=== PATIENT | female | born 1990 | race Caucasian/White ===

== ENCOUNTER 2023-06-12 13:56 | Outpatient (REF) | payer BC, SELFPAY ==
--- OUTSIDE RECORDS SUMMARY | 2023-06-12 13:58 | XMS_ITS | Continuity of Care Document ---
Author Name Unknown Organization [facility] Address [address] [place] [address] Care Team Providers Care Apprentice Plumber Name Role Phone Tita Owens Primary Care Physician Encounter [facility] FIN NBR [id number] Date(s): 08/17/22 - 08/17/[address] [address]- Discharge Disposition: Home or Self Care Attending Physician: Silvano Jeffers MD Admitting Physician: Silvano Jeffers MD Referring Physician: Silvano Jeffers MD Allergies, Adverse Reactions, Alerts Substance Reaction Severity Status amoxicillin Wheal Unknown Active prochlorperazine Disoriented Unknown Active sulfa drugs Wheal Unknown Active diphenhydrAMINE shakes Unknown Active Assessment and Plan Future Appointments Immunizations Given and Recorded Vaccine Date Status Refusal Reason influenza virus vaccine, inactivated 1 04/13/22 Gi kirit 1Early/Late Reason: Early/Late Reason: Other : I was busy. Medications nortriptyline 10 mg oral capsule 10 mg = 1 cap, Oral, TID, # 270 cap, 3 Refill(s), Pharmacy: [facility] [employer] Pharmacy Start Date: 04/14/22 Status: Ordered omeprazole 40 mg oral delayed release capsule 40 mg = 1 cap, Oral, Daily, # 90 cap, 3 Refill(s), [facility] Start Date: 04/14/22 Status: Ordered AD oral tablet 1 tab, Oral, Daily, # 30 tab, 0 Refill(s) Start Date: 04/10/22 Status: Ordered sertraline 25 mg oral tablet 1 tab, Oral, Daily, # 90 tab, 3 Refill(s), Pharmacy: [facility] Start Date: 04/14/22 Stop Date: 04/09/23 Status: Ordered Problem List Condition Confirmation Course Effective Dates Status H ealth Status Informant Anxiety Confirmed Active Asthenia Confirmed Active Complicated migraine Confirmed Active Female infertility associated with anovulation Confirmed Active Gastroesophageal reflux disease Confirmed Active Iron deficiency anemia Confirmed Active Vitamin D deficiency Confirmed Active Procedures Procedure Date Related Diagnosis Body Site Status HSG - Hysterosalpingogram Completed Social History Social History Type Response Tobacco Never tobacco user T obacco Use:. Sex Female Patient Care team information Care Team Personnel Name: Tita Owens APRN Position: Physician Member Role: Primary Care Physician Address: Address: [address] [place] [address] [address] [place] [address]- Care Team Related Persons Name: YAW FENTON Address: Home [address] [place], [place] [id number] [facility]
--- OUTSIDE RECORDS SUMMARY | 2023-06-12 13:58 | XMS_ITS | Continuity of Care Document ---
Author Name Unknown Organization [facility] Address [address] [place] [address] Care Team Providers Care Water Attendant Name Role Phone Tita Owens Primary Care Physician Encounter [facility] NBR [id number] Date(s): 04/13/22 - 04/13/22 [facility] [address] [place] [address]- Encounter Diagnosis Encounter for vaccination(Discharge Diagnosis) - 04/13/22 Gastroesophageal reflux disease(Discharge Diagnosis) - 04/14/22 Anxiety(Discharge Diagnosis) - 04/14/22 Encounter to establish care(Discharge Diagnosis) - 04/14/22 Discharge Disposition: Home or Self Care Attending Physician: Tita Owens APRN Allergies, Adverse Reactions, Alerts Substance Reaction Severity Status amoxicillin Wheal Unknown Active prochlorperazine Disoriented Unknown Active sulfa drugs Wheal Unknown Active diphenhydrAMINE shakes Unknown Active Functional Status 04/13/22 Other exposure to Infectious Disease Non e Immunizations Given and Recorded Vaccine Date Status Refusal Reason influenza virus vaccine, inactivated 1 04/13/22 Gi kirit 1Early/Late Reason: Early/Late Reason: Other : I was busy. Medications nortriptyline 10 mg oral capsule 10 mg = 1 cap, Oral, TID, # 270 cap, 3 Refill(s), Pharmacy: [facility] Start Date: 04/14/22 Status: Ordered omeprazole 40 mg oral delayed release capsule 40 mg = 1 cap, Oral, Daily, # 90 cap, 3 Refill(s), Pharmacy: [facility] Start Date: 04/14/22 Status: Ordered AD oral tablet 1 tab, Oral, Daily, # 30 tab, 0 Refill(s) Start Date: 04/10/22 Status: Ordered sertraline 25 mg oral tablet 1 tab, Oral, Daily, # 90 tab, 3 Refill(s), Pharmacy: [facility] Start Date: 04/14/22 Stop Date: 04/09/23 [...] Body Site Status HSG - Hysterosalpingogram Completed Vital Signs Most recent to oldest [Reference Range]: 1 Temperature Tympanic [36.6-37.9 Deg C] 3 6.6 Deg C (04/13/22 2:39 PM) Peripheral Pulse Rate [60-100 bpm] 93 bp m (04/13/22 2:39 PM) Blood Pressure [90-140/60-90 mmHg] 118/8 0mmHg (04/13/22 2:39 PM) Weight 59.4 kg (04/13/22 2:39 PM) Weight Measured (lbs) 130.954 lb (04/13/22 2:39 PM) Social History Social History Type Response Tobacco Never tobacco user T obacco Use:. Sex Female Hospital Discharge Instructions Follow Up Care 04/06/2022 12:13:15 With:Tita Owens APRN Address: [address] [place] [address] When:1 Year Physician Outpatient Note * Tita Owens APRN: PERFORM Event Display: Office Clinic Note Physician Authored Date: [id number] JOSSYEMILI :1990 Age:31 years Sex:Female Visit Date:04/13/2022 Primary Care Physician: Tita Owens APRN Chief Complaint establish care and med review History of Present Illness Emili was seen today to establish care.?? She was seeing Dr. Esquivel prior to this.?? She is overall doing well and has no concerns to address today.?? Her medications and medical history was reviewed in the office.?? She has a 5 month old and is .?? 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 She is UTD on vaccinations,including Tdap and on her Pap.?? She would like a flu vaccine today. These have been done at [facility]. Review of Systems Constitutional:?No??fevers,?No??chills,?No??sweats Eye:?No??recent visual problems ENT:?No??ear pain,?No??nasal congestion,?No??sore throat Respiratory:?No??shortness of breath,?No??cough Cardiovascular:?No??Chest pain,?No??palpitations,?No??syncope Gastrointestinal:?Nonausea,?No??vomiting,?No??diarrhea Genitourinary:?No??hematuria Remi/Lymph:?No??bruising tendency,?No??swollen lymph glands Endocrine:?No??excessive thirst,??No??excessive hunger Musculoskeletal:??No??back pain,??No??neck pain,??No??joint pain,??No??muscle pain,??No??decreased range of motion Integumentary:?No??rash,?No??pruritus,?No??abrasions Neurologic: Alert & oriented X 4 Psychiatric:?No??anxiety,?No??depression Physical Exam Vitals & Measurements T:??36.6?C ??(Tympanic)?? HR:??93??(Peripheral)?? BP:??118/80?? SpO2:??99%?? WT:??59.4??kg?? General: Alert and oriented, well nourished,?No??acute distress Lungs: Clear to auscultation and percussion,?Non-labored?? respiration Heart:?Normal?? rate,?Regular??rhythm,?No??murmur,?No??gallop,?No??edema Skin: Skin is warm, dry and pink,?No??rashes,?No??lesions Neurologic: Awake, alert and oriented X4, CN II-XII intact Psychiatric: Cooperative, appropriate mood and affect Assessment/Plan 1.??Encounter to establish care??Z76.89 Emili is a very pleasant 31 year old female seen to establish care.?? She is young and very healthyand stable on her current medications.?? Will refill them to [facility] at her request.?? She canfollow up in one year, call sooner if needed. 2.??Gastroesophageal reflux disease??K21.9 Currently well controlled on the Omeprazole. 3.??Anxiety??F41.9 Well controlled on the low dose of Sertraline.?? Will continue this. Encounter for vaccination??Z23 We will administer her flu vaccine today, risks and benefits reviewed. Orders: nortriptyline 10 mg oral capsule, 10 mg = 1 cap, Oral, TID, # 270 cap, 3 Refill(s), Pharmacy: [facility] omeprazole 40 mg oral delayed release capsule, 40 mg = 1 cap, Oral, Daily, # 90 cap, 3 Refill(s), Pharmacy: [facility] sertraline 25 mg oral tablet, 1 tab, Oral, Daily, # 90 tab, 3 Refill(s), Pharmacy: [facility] Medications and Immunizations This Visit Given Influenza vaccine quadrivalent, 0.5 mL, IM. For: Encounter for vaccination Follow Up Instructions With When Contact Information Tita Owens APRN Within 1 Year [address] [place] [address]- Additional Instructions: Problem List/Past Medical History Ongoing Anxiety Asthenia Complicated migraine Female infertility associated with anovulation Gastroesophageal reflux disease Iron deficiency anemia Vitamin D deficiency Historical Procedure/Surgical History ???HSG - Hysterosalpingogram Medications nortriptyline 10 mg oral capsule, 10 mg= 1 cap, Oral, TID, 3 refills omeprazole 40 mg oral delayed release capsule, 40 mg= 1 cap, Oral, Daily, 3 refills AD oral tablet, 1 tab, Oral, Daily sertraline 25 mg oral tablet, 1 tab, Oral, Daily, 3 refills Allergies amoxicillin??(Wheal) diphenhydrAMINE??(shakes) prochlorperazine??(Disoriented) sulfa drugs??(Wheal) Social History Alcohol Never Electronic Cigarette/Vaping Electronic Cigarette Use: Never. Tobacco Never tobacco user Tobacco Use:. Family History Asthma: Mother. Cancer: Aunt/Uncle, Grandfather (P) and Grandmother (P). Cardiovascular disease: Father. Heart attack: Negative: Father. Hyperlipidemia: Father. Hypertension: Father. Immunizations Vaccine Date Status influenza virus vaccine, inactivated 04/13/2022 Given Comments : Early/Late Reason: Other : ??I was busy. Electronically Signed on 04/14/22 06:37 AM Tita Owens APRN Patient Care team information Care Team Personnel Name: Tita Owens APRN Position: Physician Member Role: Primary Care Physician Address: Address: [address] [place] [address] [address] [place], [place] [address] Care Team Related Persons Name: YAW FENTON Address: Home [facility] [address] [place], [place] [id number] [facility]
--- OUTSIDE RECORDS SUMMARY | 2023-06-12 13:58 | XMS_ITS | Continuity of Care Document ---
Author Name Unknown Organization [facility] Address [address] [place] [address] Care Team Providers Care Television Anchor Name Role Phone Tita Owens Primary Care Physician [phone] Encounter [facility] NBR [id number] Date(s): 08/17/22 - 08/17/22 [facility] [address] [place] [address]- Encounter Diagnosis Right knee pain(Discharge Diagnosis) - 08/17/22 Discharge Disposition: Home or Self Care Attending Physician: Silvano Jeffers MD Allergies, Adverse Reactions, Alerts Substance Reaction Severity Status amoxicillin Wheal Unknown Active prochlorperazine Disoriented Unknown Active sulfa drugs Wheal Unknown Active diphenhydrAMINE shakes Unknown Active Assessment and Plan Future Appointments Functional Status 08/17/22 Other exposure to Infectious Disease Non e Immunizations Given and Recorded Vaccine Date Status Refusal Reason influenza virus vaccine, inactivated 1 04/13/22 Gi kirit 1Early/Late Reason: Early/Late Reason: Other : I was busy. Medications nortriptyline 10 mg oral capsule 10 mg = 1 cap, Oral, TID, # 270 cap, 3 Refill(s), Pharmacy: [facility] Start Date: 04/14/22 Status: Ordered omeprazole 40 mg oral delayed release capsule 40 mg = 1 cap, Oral, Daily, # 90 cap, 3 Refill(s), Pharmacy: [facility] Start Date: 04/14/22 Status: Ordered AD oral tablet 1 tab, Oral, Daily, # 30 tab, 0 Refill(s) Start Date: 04/10/22 Status: Ordered sertraline 25 mg oral tablet 1 tab, Oral, Daily, # 90 tab, 3 Refill(s), Pharmacy: [facility] Start Date: 04/14/22 Stop Date: 04/09/23 [...] Most recent to oldest [Reference Range]: 1 Peripheral Pulse Rate [60-100 bpm] 66 bp m (08/17/22 12:07 PM) Blood Pressure [90-140/60-90 mmHg] 120/7 2mmHg (08/17/22 12:07 PM) Weight 58.97 kg (08/17/22 12:07 PM) Weight Measured (lbs) 130.006 lb (08/17/22 12:07 PM) Height 154.94 cm (08/17/22 12:07 PM) Height/Length Measured (inches) 61 inch (08/17/22 12:07 PM) BSA Measured 1.59 m2 (08/17/22 12:07 PM) Body Mass Index 24.56 kg/m2 (08/17/22 12:07 PM) Social History Social History Type Response Tobacco Never tobacco user T obacco Use:. Sex Female Physician Outpatient Note * Silvano Jeffers MD: PERFORM Event Display: Office Clinic Note Physician Authored Date: [id number] EMILI FENTON :1990 Age:32 years Sex:Female Visit Date:08/17/2022 Primary Care Physician: Tita Owens APRN Chief Complaint R knee pain- XR today History of Present Illness The patient is a delightful 32-year-old female??who several months ago??took a fall directly onto her right knee, it was such a hard fall she says that she tore her jeans??and had a laceration??just below her patella.?? She rested the knee??and says is gotten somewhat better but since that time shecontinues to have pain??when she sits for significant periods of time??she has a lot of pain with kneeling she has pain with twisting??she did have an x-ray and she brings in for review.?? She has not had any specific treatment for the knee. Physical Exam Vitals & Measurements HR:??66??(Peripheral)?? BP:??120/72?? SpO2:??98%?? HT:??154.94??cm?? WT:??58.97??kg?? BMI:??24.56?? Pain Score:??4?? BSA:??1.59?? Review of studies: X-rays the patient's right knee are reviewed and are negative. Focused exam today of the right knee??shows full range of motion, there is a??healed laceration over the patella tendon.?? There is significant medial joint line tenderness no lateral joint line tenderness very mild retropatellar tenderness,??no instability. ?? Both knees were examined. The patella position, tracking and mobility were assessed. ??Patella tendon, fat pad, and tibial tubercle were assessed for swelling and tenderness. ??Excursion of the patella both in the medial and lateral planes were appreciated. ?Localized tenderness: With the knee flexed a mokvl-tda-[id number] palpation was performed. ??Starting with the quad tendon, the knee was examined down along the ileo-tibial band. ??The lateral joint line, the proximal tib-fib joint, Gerdy's tubercle, tibial tubercle, patellar tendon, distal patella, Pez bursa, the medial joint line collateral ligaments, and the retropatellar area. Ligament exam: A full ligament exam was performed. ??Both the cruciate and collateral ligaments were appreciated of the knee. ??Any rotary instability was then checked as patient can tolerate. ??Any scars, previous surgery as well as numbness were noted. ??The popliteal area was checked for masses tenderness and swelling. Assessment/Plan 1.??Right knee pain??M25.561 Patient??with pain after a fall onto her knee I think likely this is a combination patellofemoral contusion and secondary patellofemoral pain,??but patient does have a lot of joint line tenderness.??My plan is to give??Emili 6 weeks of physical therapy at that point if she is not better I will getan MRI to rule out occult tear Problem List/Past Medical History Ongoing Anxiety Asthenia [...] : ??I was busy. Electronically Signed on 08/17/22 12:52 PM Silvano Jeffers MD Patient Care team information Care Team Personnel Name: Tita Owens APRN Position: Physician Member Role: Primary Care Physician Address: Address: [address] [place] [address] [address] [place] [address]- Care Team Related Persons Name: YAW FENTON Address: Home [facility] [address] [place], [place] [id number] [facility]
--- OUTSIDE RECORDS SUMMARY | 2023-06-12 13:58 | XMS_ITS | Continuity of Care Document ---
Author Name Unknown Organization [facility] Address [address] [place] [address] Care Team Providers Care Belt Conveyor Drier Name Role Phone Tita Owens Primary Care Physician Encounter [facility] FIN NBR [id number] Date(s): 08/17/22 - 08/17/[address] [address]- Discharge Disposition: Home or Self Care Attending [...] TID, # 270 cap, 3 Refill(s), [facility] Start Date: 04/14/22 Status: Ordered omeprazole 40 mg oral delayed release capsule 40 mg = 1 cap, Oral, Daily, # 90 cap, 3 Refill(s), [facility] Start Date: 04/14/22 Status: Ordered AD oral tablet 1 tab, Oral, Daily, # 30 tab, 0 Refill(s) Start Date: 04/10/22 Status: Ordered sertraline 25 mg oral tablet 1 tab, Oral, Daily, # 90 tab, 3 Refill(s), Pharmacy: [facility] Start Date: 04/14/22 Stop Date: 04/09/23 [...] Body Site Status HSG - Hysterosalpingogram Completed Results Radiology Reports * Exam Date Time Procedure Performing Provider Status 08/17/22 11:15 AM XR Knee Complete 4+ Views Right Gil Silva; Auth (Verified) Notes: (XR Knee Complete 4+ Views Right) Reason For Exam: pain XR Knee Complete 4+ Views Right EXAM DESCRIPTION: XR Knee Complete 4+ Views Right 08/17/2022 INDICATION: PAIN COMPARISON: None FINDINGS: No acute fracture, dislocation or bone destructive process. Joint spaces are maintained. No radiographic foreign bodies are seen. IMPRESSION: 1. No acute fracture, dislocation or bone destructive process. JOB #: [id number] Final Signed by: Xander Hawley MD Signed (Electronic Signature): 08/17/2022 11:34 am Social History Social History Type Response Tobacco Never tobacco user T obacco Use:. Sex Female XR Knee - right GE 4 Views * Xander Hawley MD: VERIFY, VERIFY Event Display: Report EXAM DESCRIPTION: XR Knee Complete 4+ Views Right 08/17/2022 INDICATION: PAIN COMPARISON: None FINDINGS: No acute fracture, dislocation or bone destructive process. Joint spaces are maintained. No radiographic foreign bodies are seen. IMPRESSION: 1. No acute fracture, dislocation or bone destructive process. JOB #: [id number] Final Signed by: Xander Hawley MD Signed (Electronic Signature): 08/17/2022 11:34 am Patient Care team information Care Team Personnel Name: Tita Owens APRN Position: Physician Member Role: Primary Care Physician Address: Address: [address] [place] [address] [place] [address]- Care Team Related Persons Name: YAW FENTON Address: Home [address] [place], [place] [id number] [facility]
[2023-06-12 16:15] LABS: Abs Immature Grans 0.01 10^3/uL (0.0-0.06); HCT 32.9 % (36.0-46.0); HGB 10.6 g/dL (11.2-15.7); MCH 25.7 pg (27.0-33.0); MCHC 32.2 % (32.0-36.0); MCV 80 fL (80-95); MPV 12.5 fL (8.0-11.0); Platelet Count 252 10^3/uL (130-400); RBC 4.12 10^6/uL (3.93-5.22); RDW-SD 40.4 fL; Reticulocyte 0.9 % (0.5-2.4); WBC 3.61 10^3/uL (4.4-10.8)
[2023-06-12 16:28] LABS: Iron 27 ug/dL (50-170); Total Iron Binding Capacity 351 ug/dL (250-450); Transferrin Sat 8 % (15-50)
[2023-06-12 16:50] LABS: Absolute Basophil Count 0.07 10^3/uL (0.0-0.2); Absolute Eosinophil Count 0.18 10^3/uL (0.0-0.7); Absolute Lymphocyte Count 1.41 10^3/uL (1.2-3.4); Absolute Monocyte Count 0.04 10^3/uL (0.1-0.8); Absolute Neutrophil Count 1.84 10^3/uL (1.2-6.7); Atypical Lymphocytes % 11; Diff Comment Manual Differential; Myelocytes % 2; RBC Morphology Normal; Vitamin D 25 Total 24.8 ng/mL (30-100)
[2023-06-12 16:57] LABS: ALT 16 U/L (14-59); AST 13 U/L (15-37); Albumin 3.5 g/dL (3.4-5.0); Alkaline Phosphatase 91 U/L (46-116); Anion Gap 8.3 mmol/L (3-11); BUN 7 mg/dL (7-18); Bilirubin, Total 0.2 mg/dL (0.2-1.0); CO2 27.7 mmol/L (21.0-32.0); CREATININE 0.6 mg/dL (0.55-1.02); Calcium 8.4 mg/dL (8.5-10.1); Chloride 104 mmol/L (98-107); Estimated GFR 121.47 (mL/min/1.73m2); Ferritin 29 ng/mL (8-252); Glucose 106 mg/dL (74-106); Potassium 3.7 mmol/L (3.5-5.1); Sodium 140 mmol/L (136-145); TSH (W/Ref FT4) 0.87 uIU/mL (0.36-3.74); Total Protein 7.3 g/dL (6.4-8.2)
== END 2023-06-12 13:57 | disposition home or self-care (01) ==
LOC: NCHCN 13:56
PROVIDERS: PCP Registered Nurse; Visit Provider Student in an Organized Health Care Education/Training Program
DX: D64.9 Anemia, unspecified (principal); E55.9 Vitamin D deficiency, unspecified
CPT/HCPCS: 80053; 82306; 82728; 83540; 83550; 84443; 85025; 85045

== ENCOUNTER 2024-01-15 07:19 | Outpatient (REF) | payer BC, SELFPAY ==
--- OUTSIDE RECORDS SUMMARY | 2024-01-16 07:23 | XMS_ITS | Referral Summary ---
Author Organization [facility] Address [address] [place] [address] Care Team Providers Care Visitor Services Technician Name Role Phone BrigidoSeble Juice EXECUTIVE MEETING MANAGER Unavailable [phone] Rachelle Flannery APRN Primary Care Provider + Allergies Active Allergy Reactions Criticality Noted Date Comments Amoxicillin Hives 01/31/2017 Diphenhydramine Hcl Other (See Comments) 2016 shakiness Sulfa (Sulfonamide Antibiotics) Hives 01/31/2017 Medications Medication Sig Dispensed Refills Start Date End Date Status acetaminophen (TYLENOL) 500 mg tabletIndications:head ache disorder Take 1,000 mg by mouth as needed for Pain. Active ibuprofen (MOTRIN) 200 mg tabletIndications:head ache disorder Take 400 mg by mouth as needed for Pain. Active sertraline (ZOLOFT) 50 mg tablet Take 50 mg by mouth daily. Active Multivitamins tablet,chewable Take 1 Tab by mouth daily. Active pantoprazole (PROTONIX) 40 mg tablet Take 40 mg by mouth daily. Active Social History Tobacco Use Types Packs/Day Years Used Date Smoking Tobacco: Never Smokeless Tobacco: Never Alcohol Use Standard Drinks/Week Comments Yes 0 (1 standard drink = 0.6 oz pur e alcohol) Interpersonal Safety Answer Date Record ed Physically Hurt Never 01/03/2020 Verbally Threaten Not on file 01/03/2020 Sex and Gender Information Value Date Recorded Sex Assigned at Not on file Gender Identity Not on file Sexual Orientation Not on file Plan of Treatment Not on file Care Teams Visitor Services Technician Relationship Specialty Start Date End Date Rachelle Flannery APRN [address] [place] [address] PCP - General 12/10/16 Seble Fofana APRN [address] [place] [id number] 04/21/15
--- OUTSIDE RECORDS SUMMARY | 2024-01-16 07:23 | XMS_ITS | Encounter Summary ---
Author Organization [facility] Address [address] [place] [address] Care Team Providers Care Sourcing Consultant Name Role Phone Seble Fofana FUR STRETCHER Unavailable Rachelle Flannery APRN Primary Care Provider + Encounter Details Date Type Department Care Team (Late st Contact Info) Description 02/08/2017 Results Only Imaging [facility] [phone] Unknown, Provider, Social History Tobacco Use Types Packs/Day Years Used Date Smoking Tobacco: Never Smokeless Tobacco: Never Alcohol Use Standard Drinks/Week Comments Yes 0 (1 standard drink = 0.6 oz pur e alcohol) Sex and Gender Information Value Date Recorded Sex Assigned at Not on file Gender Identity Not on file Sexual Orientation Not on file documented as of this encounter Plan of Treatment Pending Results Name Type Priority Associated Diagnoses Date /Time OUTSIDE IMAGES - CT NEURO Imaging 02/08/2017 6:11 EDT documented as of this encounter Visit Diagnoses Not on filedocumented in this encounter Care Teams Sourcing Consultant Relationship Specialty Start Date End Date Rachelle Flannery APRN [address] [facility],[address] [phone] PCP - General 12/10/16 Seble Fofana APRN [address] [place] [id number] 04/21/15 documented as of this encounter
--- OUTSIDE RECORDS SUMMARY | 2024-01-16 07:23 | XMS_ITS | Encounter Summary ---
Author Organization [facility] Address [address] [place] [address] Care Team Providers Care Sap Pi Developer Name Role Phone Seble Fofana Juice LISW Unavailable [phone] Rachelle Flannery LISW Primary Care Provider + Encounter Details Date Type Department Care Team (Late st Contact Info) Description 09/03/2017 Results Only [facility] [phone] Pablo Cole MD [address] [place] [address] Social History Tobacco Use Types Packs/Day Years Used Date Smoking Tobacco: Never Smokeless Tobacco: Never Alcohol Use Standard Drinks/Week Comments Yes 0 (1 standard drink = 0.6 oz pur e alcohol) Sex and Gender Information Value Date Recorded Sex Assigned at Not on file Gender Identity Not on file Sexual Orientation Not on file documented as of this encounter Plan of Treatment Not on file documented as of this encounter Procedures Procedure Name Priority Date/Time Associated Diagnosis Comments SURGICAL PATHOLOGY Routine 09/03/2017 16 :09 EDT documented in this encounter Results * SURGICAL PATHOLOGY (09/03/2017 16:09 EDT) Pathology Report: SURGICAL PATHOLOGY REPORT Reports generated via electronic interface contain original data; however they are lacking the format of the original report. Caution should be taken when reading/interpret ing unformatted reports. Name: ? EMILI FENTON ? Accession #: ? [id number] ? : ? 1990 (Age: 27) ??F ? Collect Date: ? 09/03/2017 ? Location: ? [facility] ? Receive Date: ? 09/04/2017 ? Provider: PABLO COLE MD Copy to: DIANA MARIANO DO ? Final Pathologic Diagnosis: UTERINE CONTENTS, EVACUATION: - Chorionic villi, decidua, and gestational endometrium. Document reviewed and electronically signed by: SEAN ACEVES MD Report ??Date: 09/06/2017 09:30 By the signature above, the attending physician certifies that he/she has personally conducted a gross and/or microscopic examination of the described specimens and rendered or confirmed the above diagnosis. Specimen(s) Received: Uterine contents Clinical History: Missed , 9+6 by LMP, 6+1 by ultrasound; clinical diagnosis code: ??O02.1 Gross Description: ? Received in formalin labelled with proper patient identification (initials T, D) and uterine contents are parra and stovall irregular and focally papilliferous tissue fragments aggregating 8.0 x 7.0 x 1.1 cm. structures are not identified. [employer] sections are submitted in 1-3. ERICK Workman (ASCP) 09/04/2017 4:28 PM End of Report [facility] 09/03/2017 16:0 9 EDT 09/04/2017 16:09 EDT Pablo Cole MD PATHOLOGY ORDERABLES [facility] [address] [place] [address] documented in this encounter Visit Diagnoses Not on filedocumented in this encounter Care Teams Sap Pi Developer Relationship Specialty Start Date End Date Rachelle Flannery APRN [address] [facility] [address] [place] [address] PCP - General 12/10/16 Seble Fofana APRN [address] [place] [address] 04/21/15 documented as of this encounter
--- OUTSIDE RECORDS SUMMARY | 2024-01-16 07:23 | XMS_ITS | Encounter Summary ---
Author Organization [facility] Address [address] [place] [address] Care Team Providers Care Retail Aide Name Role Phone Brigido Seble Bose VEHICLE LEASING AND RENTAL MANAGER Unavailable Rachelle Flannery APRN Primary Care Provider + Reason for Referral * (Routine) - Closed Specialty Diagnoses / Procedures Referred By Cheo clayton Referred To Contact Diagnoses Migraine without aura and without status migrainosus, not intractable Retinal scar, right Visual field defect Procedures OCT (OPHTHALMIC DIGITAL IMAGING, POSTERIOR SEGMENT) Cruz Nava MD [address] [address] Referral ID Status Reason Start Date Expiration Date Visits Re quested Visits Authorized [id number] Closed 01/31/2017 1 1 * (Routine) - Closed Specialty Diagnoses / Procedures Referred By Cheo clayton Referred To Contact Diagnoses Migraine without aura and without status migrainosus, not intractable Retinal scar, right Visual field defect Procedures VISUAL FIELD EXAM, EXTENDED Cruz Nava MD [address] [address] Referral ID Status Reason Start Date Expiration Date Visits Re quested Visits Authorized [id number] Closed 01/31/2017 1 1 Reason for Visit * Reason Comments Migraine Referred by Dr. Raul burroughs from [place], [place] for evaluation of migraine with auras. Longstanding headaches as preteen then migraines as she got older. Pt states she has 3-4 headaches per week lasting 3-4 hours. With headaches pt has dull ache in both eyes which is relieved by Tylenol and Ibuprofen. No flashing, floaters. Motor noises in head, scalp tenderness, no trouble chewing/swallowing. No high risk medication. Focusing is difficult, feels eyes cross on occasion. Encounter Details Date Type Department Care Team (Late st Contact Info) Description 01/31/2017 8:[address] [facility] Ophthalmology - [address] [address] Cruz Nava MD [address] [place] [address], [address] [place] [address] Social History Tobacco Use Types Packs/Day Years Used Date Smoking Tobacco: Never Smokeless Tobacco: Never Alcohol Use Standard Drinks/Week Comments Yes 0 (1 standard drink = 0.6 oz pur e alcohol) Sex and Gender Information Value Date Recorded Sex Assigned at Not on file Gender Identity Not on file Sexual Orientation Not on file documented as of this encounter Progress Notes * Cruz Nava MD - 01/31/2017 0815 EDT This office note has been dictated. 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 These were never associated with any visual symptoms, occurred on a fairly regular basis but did not require any significant medications to address them and the patient never sought medical treatment for the same. In mid-November, the patient had a more complicated episode where she developed a visual phenomenon occurring in the left hemifield of both eyes. She describes this as a bright light that obscured her vision. This was yellow and had some shimmering component and it occurred when she walked into a grocery st [place], lasted for several minutes, perhaps up to 5 and subsequently resolved. About 10 to 15 minutes later the patient developed a severe headache with left- sided symptoms including left arm numbness. She reports that her tongue hurt, felt loose and floppy. There was pain in and around the eyes and she was slurring her words. The patient presented to an outside hospital where initial CT was obtained and showed no abnormality. She was subsequently discharged with the diagnosis of possible migraine. By report, an MRI of the head at [facility], suggested some degree of scarring of her right optic nerve (image is not available at the time of this evaluation for review). The patient saw Dr Patricia either after that MRI or as part of the evaluation for this episode and question was raised as to the significance of this, and a referral for neuro-ophthalmic evaluation was made. The patient reports that she has had a dull headache for the past 3 to 4 weeks, this has been variable, with some above the eye, it can be either eye. Her headaches tend to migrate around her head. She has also had some occipital tingling. Headaches do not typically present upon wakening, most develop during the day. There is some dizziness, and rare photophobia. She feels lightheaded, has not had any nausea, vomiting. She denies any clear triggering events, but states that maintaining hydration and frequent snacking will help her headaches. She has not had any further episodes of more significant headache that brought her to the emergency department. Otherwise, she has been well. The ocular history is significant for having had regular ophthalmologic or optometric care. The patient had followed with a provider in the distant past and has regularly followed with Dr Leija at [facility]. Of note, she was hit with a soccer ball in high school and told that she had hemorrhage in the eye; she is pretty certain that this was the right eye and some changes were seen, the specifics of which are not entirely clear at the time of her evaluation today. She has not been seen back for eye care since the episode in November. The patient continues to have some light sensitivity. The medical history is significant for mild anxiety, and gastroesophageal reflux disease. She has no significant surgical history. The family history is significant for a brother with transverse myelitis, diagnosed and treated at [facility] without subsequent diagnosis of either multiple sclerosis or neuromyelitis optica. There are a number of family members who wear glasses. There is no other known neurologic or ophthalmologic disease in the family. The social history reveals that the patient does not smoke. She drinks alcohol in moderation, does not use recreational drugs. Medications were reviewed as documented in the electronic health record to include Tylenol and ibuprofen, typically fairly frequently, uses a multivitamin, pantoprazole as well as sertraline. The patient reports allergies to AMOXICILLIN, BENADRYL and SULFA. The neuro-ophthalmic examination revealed the patient to be communicative and cooperative for testing. Visual acuities without correction were 20/20 minus in the right eye, 20/20-2 in the left eye, Belen 1+ on near card in each eye tested eventually. Color vision (Ishihara) showed no dyschromatopsia. Amsler grid testing showed no metamorphopsia. The pupils were mildly asymmetric, right larger than left. I did not appreciate a relative afferent pupillary defect. External examination of the eyesand orbits was normal. The lids were normal in position and showed no lid lag or twitch. Examination of extraocular motility showed no strabismus. Versions and ductions were full. Pursuit and saccade function was normal. There was no nystagmus. Stereopsis revealed 40 seconds. Applanation tonometry at 0936 hours was 12 mmHg in the right eye, 13 mmHg in the left eye. Slit lamp examination revealed mildly dilated vessels bilaterally with otherwise normal anterior segments. Automated Villeda visual corea were performed reliably. The right eye showed a scotoma inferiorly with preserved central acuity and scattered areas of decreased sensitivity elsewhere. Mean deviation score -5.0 dB and a foveal threshold of 39 dB. The left eye showed normal pattern and deviation plot with a mean deviation score of -0.05 dB and a foveal threshold of 38 dB. Undilated stereoscopic (indirect) funduscopy revealed a normal optic nerve on the right with normal macula, along the inferior arcade there is a 2 to3 x 2 disc diameter retinal scar with pigment clumping and some degree of more peripheral adjacent pigment clumping, consistent with a retinal scar. The vessels were otherwise unremarkable. The opticnerve, vessels and macula as well as peripheral retina on the left were unremarkable. Cup-to-disc ratios were 0.2 in each eye. Spectral domain OCT nerve fiber layer analysis was performed bilaterally and showed no thinning or edema of the nerve fiber layer at the disc, measuring 114 microns on the right, 107 microns on the left. At the macula the nerve fiber layer thickness is normal and even. There is suggestion in the periphery of the retinal scar seen on funduscopy. Neuroimaging was not available at the time of the patient's consultation today. FORMULATION: This is a 26-year-old woman with longstanding history of chronic headaches likely common migraine beginning in mid-high school. The patient had a more significant event in the middle of November with features suggestive of classic migraine and then complicated migraine. She has undergone neurologic evaluation and has had neuroimaging with a question about possible optic nerve scarring, at least as it is conveyed by the patient today. The patient does have history of eye trauma, and there is evidence for a retinal damage in the right eye. Whether this relates to what was seen on the MRI is not entirely clear, but quite possibly. Fortunately, the patient has preserved central acuity, a good field and normal color vision in each eye. In fact, I did not appreciate a relative afferent pupillary defect and the lesion at the retina on the right is small enough that clinically one might not pick this up with a swinging flashlight. I have asked the patient to forward me actual copies of the imaging that were obtained with her MRI.If after reviewing this, there is anything that changes the way I think about the assessment we will certainly be in contact to determine if any additional followup or diagnostics are needed. In the meantime, patient is having significant enough headaches that it might be reasonable for her to consider a prophylactic medication. She recently has been started on Zoloft for anxiety and while this may help her anxiety, it is not typically particularly effective for migraine prophylaxis, but there are a number of medications in this class that might be more so. I have recommended that the patientconsider further care of her chronic headaches. I have further recommended that she avoid vetz-hiv-fiyxabj analgesics no more than 3 days per week or 8 days per month, as this can trigger analgesic rebound headache. We will be in contact after she sends me a copy of her MRI to determine if there are any other features of concern. Otherwise, the patient should have ongoing age-appropriate eye careand treatment of her migraines. Impression: 1. History of headaches, likely chronic common migraine with episode consistent with complicated migraine in mid-November 2. Some persistent symptoms relating to migraine including some degree of light sensitivity and persisting headaches 3. History of injury to the right eye as a soccer injury with evidence for scarring at the retina, and the patient was evaluated in the local area for the same 4. 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 Review MRI obtained in November, the patient is going to send a CD copy and will be in contact a fewdays afterwards to ensure that this arrives and has been reviewed appropriately 2. Consider further treatment for migraine headaches 3. Continue age-appropriate routine eye care 4. Followup neuro-ophthalmic examination as needed Thank you for allowing me to share in the care of this patient. Please do not hesitate to contact me with any further questions or concerns. Cruz Nava MD Diplomate, the [place] [employer] & Neurology skull grinder Department of Ophthalmology NEURO-OPHTHALMOLOGY cc: Joseph Velez MD, [address] [facility], [place] [address] Memo Leija OD, [facility] [address], [address], [place] [id number] Rachelle Flannery APRN, [address] [facility], [address], [place] [phone] Sven Patricia MD, [address] [facility], [place] [address] documented in this encounter Plan of Treatment Scheduled Orders Name Type Priority Associated Diagnoses Orde r Schedule VISUAL FIELD EXAM, EXTENDED Ophthalmology Routine Migraine without aura and without status migrainosus, not intractable Retinal Scar, Right Visual field defect Ordered: 01/31/2017 OCT (OPHTHALMIC DIGITAL IMAGING, POSTERIOR SEGMENT) Ophthalmology Routine Migraine without aura and without status migrainosus, not intractable Retinal Scar, Right Visual field defect Ordered: 01/31/2017 documented as of this encounter Visit Diagnoses Diagnosis Migraine without aura and without status migrainosus, not intractable- Primary Migraine without aura, without mention of intractable migraine without mention of status migrainosus Retinal scar, right Visual field defect Visual field defect, unspecified documented in this encounter Historical Medications * This list may reflect changes made after this encounter. Medication Sig Dispensed Refills Start Date End Date pantoprazole (PROTONIX) 40 mg tablet Take 40 mg by mouth daily. Multivitamins tablet,chewable Take 1 Tab by mouth daily. sertraline (ZOLOFT) 50 mg tablet Take 50 mg by mouth daily. ibuprofen (MOTRIN) 200 mg tabletIndications:headache disorder Take 400 mg by mouth as needed for Pain. acetaminophen (TYLENOL) 500 mg tabletIndications:headache disorder Take 1,000 mg by mouth as needed for Pain. added in this encounter Eye Exam Visual Acuity (Snellen - Linear) Right eye Left eye Dist sc 20/20 -1 20/20 -2 Near sc J1+ J1+ Tonometry (Applanation, 9:36) Right eye Left eye Pressure 12 13 Pupils Dark React APD Right eye 6.5 Minimal None Left eye 6 Minimal None Visual Corea Right eye Left eye Full Full Extraocular Movement Right eye Left eye Full, Ortho Full, Ortho Neuro/Psych Oriented x3: Yes Mood/Affect: Normal Amsler Right eye Left eye Normal Normal Color Right eye Left eye Ishihara 04/13 04/13 Stereo Fly: + Circles: 02/09 Slit Lamp Exam Right eye Left eye Lids/Lashes Normal Normal Conjunctiva/Sclera dilated vessel temporally dil ated vessel temporally Cornea Clear Clear Anterior Chamber Deep and quiet Deep and quiet Iris Round and reactive, no TI Round and reactive, no TI Lens Clear Clear Vitreous Normal Normal Fundus Exam Right eye Left eye Disc Normal Normal C/D Ratio 0.2 0.2 Macula Normal Normal Vessels alond sup arcade 2-3 DD X 2 DD retial scar w/ pigment clumping and some degree of more peripheral but adj lesser pig clump Normal Care Teams Retail Aide Relationship Specialty Start Date End Date Rachelle Flannery APRN [address] [facility] 3 [place] [address] PCP - General 12/10/16 Seble Fofana APRN [address] [place] [phone] 04/21/15 documented as of this encounter
--- OUTSIDE RECORDS SUMMARY | 2024-01-16 07:23 | XMS_ITS | Encounter Summary ---
Author Organization [facility] Address [facility] [place] [address] Care Team Providers Care Recycle Worker Name Role Phone Unavailable Primary Care Provider Unavailabl e Encounter Details Date Type Department Care Team (Latest Contact Info) Description 11/17/2016 - 11/17/2016 11:59 PM EDT Hospital Encounter [place] [address] Carroll Westbrook MD [facility] [place] [address] Pain Discharge Disposition: Home Social History Tobacco Use Types Packs/Day Years Used Date Smoking Tobacco: Never Assessed Sex and Gender Information Value Date Recorded Sex Assigned at Not on file Gender Identity Not on file Sexual Orientation Not on file documented as of this encounter Plan of Treatment Not on file documented as of this encounter Procedures Procedure Name Priority Date/Time Associated Diagnosis Comments FILM LIBRARY STORAGE ONLY CT HEAD Routine 11/17/2016 12:00 AM EDT Pain documented in this encounter Results * Film Library- Storage Only CT Head (11/17/2016 12:00 AM EDT) Narrative [facility] - 11/17/2016 5:01 PM EDT This exam is for storage only and is auto-finalizing. Carroll Westbrook MD IMG FILM LIBRARY ORD ERABLES [place], [place] documented in this encounter Visit Diagnoses Diagnosis Pain Generalized pain documented in this encounter
--- OUTSIDE RECORDS SUMMARY | 2024-01-16 07:23 | XMS_ITS | Clinical Summary ---
Author Organization [facility] Address [address] [place] [address] Care Team Providers Care Director Of Partner Marketing Name Role Phone Brigido Seble M LEVEL DESIGNER Unavailable [phone] Rachelle Flannery APRN Primary Care Provider + [...] Take 40 mg by mouth daily. Active Family History Medical History Relation Comments Hypertension Father Relation Status Comments Father Alive Mother Alive Social History Tobacco Use Types Packs/Day Years [...] on file Sexual Orientation Not on file Obstetrics History Plan of Treatment Health Maintenance Due Date Last Done Comments Hepatitis C Screen 1990 Hepatitis B Vaccine (1 of 3 - 19+ 3-dose series) 06/06 COVID-19 Vaccine (2022-24 season) 2023 Care Teams Director Of Partner Marketing Relationship Specialty Start Date End Date Rachelle Flannery APRN [address] [facility] 3 [place] [address] PCP - General 12/10/16 Seble Fofana APRN [address] [place] [address] 04/21/15
--- OUTSIDE RECORDS SUMMARY | 2024-01-16 07:23 | XMS_ITS | Encounter Summary ---
Author Organization [facility] Address [facility] [place] [address] Care Team Providers Care Direct Care Professional Name Role Phone Unavailable Primary Care Provider Unavailabl e Encounter Details Date Type Department Care Team (Late st Contact Info) Description 11/29/2016 - 11/29/2016 11:59 PM EDT Hospital Encounter [place] [address] Olivia Knight MD [facility] [place] [place] [address] Pain Discharge Disposition: Home Social History Tobacco [...] Associated Diagnosis Comments FILM LIBRARY STORAGE ONLY MR HEAD Routine 11/29/2016 12:00 AM EDT Pain documented in this encounter Results * Film Library- Storage Only MR Head (11/29/2016 12:00 AM EDT) Narrative RAD - 12/03/2016 2:11 PM EDT This exam is for storage only and is auto-finalizing. Olivia Knight MD IMG FILM LIBRARY ORDERABLES [place], [place] documented in this encounter Visit Diagnoses Diagnosis Pain Generalized pain documented in this encounter
--- OUTSIDE RECORDS SUMMARY | 2024-01-16 07:23 | XMS_ITS | Encounter Summary ---
Author Organization [facility] Address [facility] [place] [address] Care Team Providers Care Relocation Specialist Name Role Phone Unavailable Primary Care Provider Unavailabl e Encounter Details Date Type Department Care Team (Late st Contact Info) Description 11/17/2016 [place] [phone] Lilia Reyes MD [facility] [place] [address] Social History Tobacco Use Types Packs/Day Years Used Date Smoking Tobacco: Never Assessed Sex and Gender Information Value Date Recorded Sex Assigned at Not on file Gender Identity Not on file Sexual Orientation Not on file documented as of this encounter Miscellaneous Notes * Telephone Encounter - Lilia Reyes MD - 11/17/2016 6:17 PM EDT [facility] Pablo Huerta, [facility] Sudden onset of headache, right sided, nausea, vision 20/20, peripheral field vision normal, vomited, resolved with Benadryl, Ketoralac, Zofran. Did not evaluate for papilledema. Prominent optic nerve sheath. Vitals stable CT head shows prominent optic nerve sheaths with possible surrounding fluid. Recommend evaluation for papilledema with an ophthalmoscope exam, a lumbar puncture with opening pressure and possible removal of CSF if elevated pressure on lumbar puncture. Would also recommend ophtho follow up for visual bianchi. documented in this encounter Plan of Treatment Not on file documented as of this encounter Visit Diagnoses Not on filedocumented in this encounter
--- OUTSIDE RECORDS SUMMARY | 2024-01-16 07:23 | XMS_ITS | Clinical Summary ---
Author Organization [facility] Address [facility] [place] [address] Care Team Providers Care Allergy And Immunology Chief Name Role Phone Milan Gonzalez DO Primary Care Provider [phone] Social History Tobacco Use Types Packs/Day Years Used Date Smoking Tobacco: Never Assessed Sex and Gender Information Value Date Recorded Sex Assigned at Not on file Gender Identity Not on file Sexual Orientation Not on file Plan of Treatment Health Maintenance Due Date Last Done Comments HIV screen 2008 Hepatitis C Screening 2008 Hepatitis B vaccine (0-59 yrs) (1) 2009 Tdap adult 2009 Tetanus vaccine 2009 HPV test 2020 PAP Smear 2020 Covid-19 Vaccine ( season) 2023 Influenza (Flu) vaccine (1 o f 1 - Influenza standard series) 02/02/2024 Care Teams Allergy And Immunology Chief Relationship Specialty Start Date End Date Milan Gonzalez DO [address] [place] [id number] PCP - General Family Medicine 05/22/18
--- OUTSIDE RECORDS SUMMARY | 2024-01-16 07:23 | XMS_ITS | Encounter Summary ---
Author Organization [facility] Address [address] [place] [address] Care Team Providers Care Refrigeration Manager Name Role Phone Brigido Seble Bose INSPECTOR AND HAND PACKAGER Unavailable [phone] Rachelle Flannery APRN Primary Care Provider + Encounter Details Date Type Department Care Team (Latest Contact Info) Description 09/03/2017 10:35 EDT - 09/03/2017 23:59 EDT Hospital Encounter [address] [address] Unknown, Provider, Discharge Disposition: Home or Self Care Social History Tobacco Use Types Packs/Day Years Used Date Smoking Tobacco: Never Smokeless Tobacco: Never Alcohol Use Standard Drinks/Week Comments Yes 0 (1 standard drink = 0.6 oz pur e alcohol) Sex and Gender Information Value Date Recorded Sex Assigned at Not on file Gender Identity Not on file Sexual Orientation Not on file documented as of this encounter Medications at Time of Discharge Medication Sig Dispensed Refills Start Date End Date acetaminophen (TYLENOL) 500 mg tabletIndications:headache disorder Take 1,000 mg by mouth as needed for Pain. ibuprofen (MOTRIN) 200 mg tabletIndications:headache disorder Take 400 mg by mouth as needed for Pain. Multivitamins tablet,chewable Take 1 Tab by mouth daily. pantoprazole (PROTONIX) 40 mg tablet Take 40 mg by mouth daily. sertraline (ZOLOFT) 50 mg tablet Take 50 mg by mouth daily. documented as of this encounter Discharge Disposition Disposition Code Departure Means Destination Home or Self Halfway documented in this encounter Plan of Treatment Not on file documented as of this encounter Visit Diagnoses Not on filedocumented in this encounter Care Teams Refrigeration Manager Relationship Specialty Start Date End Date Rachelle Flannery APRN [address] [facility] [address] [place] [address] PCP - General 12/10/16 Seble Fofana APRN [address] [place] [address] 04/21/15 documented as of this encounter
--- OUTSIDE RECORDS SUMMARY | 2024-01-16 07:24 | XMS_ITS | Encounter Summary ---
Author Organization [facility] Address [address] [place] [address] Care Team Providers Care Cloth Tester Quality Name Role Phone Dayanara Umana APRN Primary Care Provider + Encounter Details Date Type Department Care Team (Late st Contact Info) Description 07/03/2012 Results Only [facility] Laboratory Services - [facility] [place] [address] [place], [place] [address] Gil Genao, DO [address] [facility] [address] [place] [address] Social History Tobacco Use Types Packs/Day Years Used Date Smoking Tobacco: Never Assessed Sex and Gender Information Value Date Recorded Sex Assigned at Not on file Gender Identity Not on file Sexual Orientation Not on file documented as of this encounter Plan of Treatment Not on file documented as of this encounter Procedures Procedure Name Priority Date/Time Associated Diagnosis Comments SURGICAL PATHOLOGY Routine 07/03/2012 8:49 EST documented in this encounter Results * SURGICAL PATHOLOGY (07/03/2012 8:49 EST) Pathology Report: SURGICAL PATHOLOGY REPORT Reports generated via electronic interface contain original data; however they are lacking the format of the original report. Caution should be taken when reading/interpreti ng unformatted reports. Name: ? EMILI GOMEZ ? Accession #: ? [id number] ? : ? 1990 (Age: 22) ??F ? Collect Date: ? 07/03/2012 ? Location: ? [facility] ? Receive Date: ? 07/03/2012 ? Provider: GIL GENAO DO Copy to: JERSON NAVARRO TIRE SERVICER ? Final Pathologic Diagnosis: A. ?Stomach, antrum, biopsies: 1. ?Antral-type mucosa with reactive gastropathy. B. ?Esophagus, distal, biopsies: 1. ?Squamocolumnar mucosa with reactive changes compatible with reflux. ? - No intestinal metaplasia/dysplas ia identified. ? C. ?? Esophagus, mid, biopsies: ? 1. ?? Squamous mucosa with mild reactive changes. D. ?? Esophagus, proximal, biopsies: ? 1. ?? Squamous mucosa with mild reactive changes. Document reviewed and electronically signed by: TAMIKO DALY MD Report ??Date: 07/07/2012 15:56 By the signature above, the attending physician certifies that he/she has personally conducted a gross and/or microscopic examination of the described specimens and rendered or confirmed the above diagnosis. Specimen(s) Received: A. ?Bx antrum B. ? Bx esophagus distal C. ? Bx esophagus mid D. ? Bx esophagus proximal Clinical History: ? GERD on PPI Gross Description: ? Received in formalin labelled Emili Gomez and bx antrum are two parra-pink irregular soft tissue fragments measuring 0.3 x 0.2 x 0.1 cm and 0.3 x 0.2 x 0.2 cm. ??The specimen is entirely submitted as (A1). ?? Received in formalin labelled Lord, Emili and bx esophagus distal are three pink-white irregular soft tissue fragments ranging from 0.3 x 0.3 x 0.2 cm to 0.5 x 0.2 x 0.1 cm. ??The specimen is entirely submitted as (B1). Received in formalin labelled Lord, Emili and bx esophagus mid are two pink-white irregular soft tissue fragments averaging 0.3 x 0.2 x 0.1 cm. ??The specimen is entirely as (C1). Received in formalin labelled Lord, Emili and bx esophagus prox are two pink-white irregular soft tissue fragments measuring 0.3 x 0.3 x 0.1 cm and 0.4 x 0.2 x 0.1 cm. ??The specimen is submitted intact as (D1). (Cara Madrid)/mpl End of Report [facility] 07/03/2012 8:49 EST 07/03/2012 8:49 EST Gil Genao DO PATHOLOGY ORDER MARIELOS BOLA ASHLEY [address] [place] [address] documented in this encounter Visit Diagnoses Not on filedocumented in this encounter Care Teams Cloth Tester Quality Relationship Specialty Start Date End Date Dayanara Umana APRN [address] [place] [phone] PCP - General 12/24/11 07/09/12 documented as of this encounter
--- OUTSIDE RECORDS SUMMARY | 2024-01-16 07:24 | XMS_ITS | Encounter Summary ---
Author Organization [facility] Address [address] [place] [address] Care Team Providers Care Core Machine Tender Name Role Phone Unavailable Primary Care Provider Unavailabl e Encounter Details Date Type Department Care Team ([facility] st Contact Info) Description 12/20/2011 Results Only [facility] [place] [facility] Laboratory Services - [facility] [place] [address] [place], [place] [id number] Seble Fofana, CHEF & OWNER [address] [place] [phone] Social History Tobacco Use Types Packs/Day Years Used Date Smoking Tobacco: Never Assessed Sex and Gender Information Value Date Recorded Sex Assigned at Not on file Gender Identity Not on file Sexual Orientation Not on file documented as of this encounter Plan of Treatment Not on file documented as of this encounter Procedures Procedure Name Priority Date/Time Associated Diagnosis Comments PAP TEST- RESULT ONLY Routine 12/20/2011 0:00 EDT documented in this encounter Results * PAP TEST- RESULT ONLY (12/20/2011 0:00 EDT) Pathology Report: CYTOPATHOLOGY REPORT Reports generated via electronic interface contain original data; however they are lacking the format of the original report. Caution should be taken when reading/interpreti ng unformatted reports. Name: ? EMILI GOMEZ ? Accession #: ? [id number] : ? 1990 (Age: 21) ??F ?Collect Date: ? 12/20/2011 Location: ? [facility] ? Receive Date: ? 12/21/2011 Provider: ?SEBLE FOFANA CHEF & OWNER Copy to: ? Specimen/Source: ?Pap Test, Endocervix, ThinPrep Imaging System with manual evaluation Last Menstrual Period: ? SPECIMEN ADEQUACY ? Satisfactory for Evaluation - transformation zone component present GENERAL CATEGORIZATION ? Negative for Intraepithelial Lesion or Malignancy ? Document reviewed and electronically signed by: ? RALPH Collazo(ASCP) ? Report Date: ??12/27/2011 08:02 End of Report [facility] A[facility] 12/20/2011 12/21/2011 Seble Fofana CHEF & OWNER PATHOLOGY ORDERAB LES BOLA ASHLEY [address] [place] [address] documented in this encounter Visit Diagnoses Not on filedocumented in this encounter
--- OUTSIDE RECORDS SUMMARY | 2024-01-16 07:24 | XMS_ITS | Encounter Summary ---
Author Organization [facility] Address [address] [place] [address] Care Team Providers Care Retail Department Manager Name Role Phone Unavailable Primary Care Provider Unavailabl e Encounter Details Date Type Department Care Team (Latest Contact Info) Description 12/20/2011 15:18 EDT - 12/20/2011 15:19 EDT Hospital Encounter [address] [address] Seble Fofana, FISH DRESSING MACHINE FEEDER [address] [place] [phone] Discharge Disposition: Home or Self Care Social History Tobacco Use Types Packs/Day Years Used Date Smoking Tobacco: Never Assessed Sex and Gender Information Value Date Recorded Sex Assigned at Not on file Gender Identity Not on file Sexual Orientation Not on file documented as of this encounter Discharge Disposition Disposition Code Departure Means Destination Home or Self Care documented in this encounter Plan of Treatment Not on file documented as of this encounter Visit Diagnoses Not on filedocumented in this encounter
--- OUTSIDE RECORDS SUMMARY | 2024-01-16 07:24 | XMS_ITS | Encounter Summary ---
Author Organization [facility] Address [address] [place] [address] Care Team Providers Care Fabrication Operator Name Role Phone Seble Fofana APRN Primary Care Provider [phone] Unknown, Provider Primary Care Provider [phone] Seble Fofana APRN Unavailable [phone] Encounter Details Date Type Department Care Team (Late st Contact Info) Description 04/20/2015 Results Only [facility]- [facility]ISM [phone] Jil Ordaz, GRAPPLE CREW LEADER [address] [place] [address] Social History Tobacco Use Types Packs/Day Years [...] Diagnosis Comments PAP TEST- RESULT ONLY Routine 04/20/2015 0:00 EST documented in this encounter Results * PAP TEST- RESULT ONLY (04/20/2015 0:00 EST) Pathology Report: CYTOPATHOLOGY REPORT Reports generated via electronic interface contain original data; however they are lacking the format of the original report. Caution should be taken when reading/interpreti ng unformatted reports. Name: ? EMILI FENTON ? Accession #: ? [id number] : ? 1990 (Age: 24) ??F ?Collect Date: ? 04/20/2015 Location: ? [facility] ? Receive Date: ? 04/21/2015 Provider: ?JIL ORDAZ GRAPPLE CREW LEADER Copy to: ? Specimen/Source: ?Pap Test, Cervix/Endocervix, ThinPrep Imaging System with manual evaluation Last Menstrual Period: ? 04/03/2015 Hormonal/Contracep tive Status: ? None: no method ? SPECIMEN ADEQUACY ? Satisfactory for Evaluation - transformation zone component present GENERAL CATEGORIZATION ? Negative for Intraepithelial Lesion or Malignancy INTERPRETATION ? Fungal organisms present morphologically consistent with Sheryl species. ? Document reviewed and electronically signed by: ? RALPH Carrera(ASCP) ? Report Date: ??04/26/2015 16:10 End of Report [facility] 04/20/2015 04/21/2015 Jil Ordaz GRAPPLE CREW LEADER PATHOLOGY ORDERA DEVONTES [facility] [address] [place] [address] documented in this encounter Visit Diagnoses Not on filedocumented in this encounter Care Teams Fabrication Operator Relationship Specialty Start Date End Date Seble Fofana APRN [address] [place] [phone] PCP - General 07/10/12 04/20/15 Unknown, Provider, [address] [place] [phone] PCP - General 04/21/15 12/09/16 Seble Fofana APRN [address] [place] [address] 04/21/15 documented as of this encounter
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
--- OUTSIDE RECORDS SUMMARY | 2024-01-16 07:24 | XMS_ITS | Encounter Summary ---
Author Organization [facility] Address [address] [place] [address] Care Team Providers Care Patient Resource Specialist Name Role Phone Unavailable Primary Care Provider Unavailabl e Encounter Details Date Type Department Care Team (Late st Contact Info) Description 05/21/2007 7:43 EST Hospital Encounter [facility] - [facility] conversion [address] [place] [address] Gene Barrera MD Social History Tobacco Use Types Packs/Day Years [...]
== END 2024-01-15 07:20 | disposition home or self-care (01) ==
LOC: LBN 07:19
PROVIDERS: PCP Registered Nurse; Visit Provider Family Medicine
DX: B95.62 Methicillin resistant Staphylococcus aureus infection as the cause of diseases classified elsewhere (principal); L08.9 Local infection of the skin and subcutaneous tissue, unspecified
CPT/HCPCS: 87077; 87070; 87186; 87205

== ENCOUNTER 2024-10-08 09:22 | Outpatient (REF) | payer BC, SELFPAY ==
--- NOTE | 2024-10-08 08:55 | PAPFT_PTH ---
PATIENT: Samaria Das LOC: [facility]#:[id number] AGE/SX: 34/F ROOM: RE10/08/[address]: Nathan Camarillo : 1990 BED: DIS: 10/08/2024 SPEC #: [id number] RECD: 10/08/24 18:23 STATUS: ANA REHardeep #: [id number] KARI: 10/08/24 08:[address]: Nathan Camarillo DEPT: [facility] Cytology RECD BY: Keena Qureshi Tissues: 1 - CX/ENDOCX FOR PAP SMEARS Procedures: PAP THIN PREP/[facility] Screening HPV DNA PROBE Comments: [id number] (HPV 16 & 18/45)
[2024-10-08 15:39] LABS: Abs Immature Grans 0.01 10^3/uL (0.0-0.06); Absolute Basophil Count 0.04 10^3/uL (0.0-0.2); Absolute Eosinophil Count 0.06 10^3/uL (0.0-0.7); Absolute Lymphocyte Count 1.12 10^3/uL (1.2-3.4); Absolute Monocyte Count 0.25 10^3/uL (0.1-0.8); Absolute Neutrophil Count 3.56 10^3/uL (1.2-6.7); Basophils % 0.8 %; Eosinophils % 1.2 %; HCT 29.6 % (36.0-46.0); HGB 8.6 g/dL (11.2-15.7); Immature Grans % 0.2 %; Lymphocytes % 22.2 %; MCHC 29.1 % (32.0-36.0); MCV 69 fL (80-95); Neutrophils % 70.6 %; RBC 4.29 10^6/uL (3.93-5.22); RDW 17.7 % (11.7-14.6); RDW-SD 43.2 fL; WBC 5.04 10^3/uL (4.4-10.8)
[2024-10-08 15:55] LABS: Calculated LDL 139 mg/dL (<100); Cholesterol 203 mg/dL (<200); HDL Cholesterol 46 mg/dL (>or=50); Triglyceride 92 mg/dL (<150)
[2024-10-08 15:58] LABS: Diff Comment RBC Morph Reviewed; Microcytosis 2+; Platelet Count 197 10^3/uL (130-400)
[2024-10-08 16:01] LABS: Hemoglobin A1C 5.7 % (<5.7)
[2024-10-13 16:45] LABS: Tissue Transglutaminase Ab IgA <1.2 U/mL (<4.0); Tissue Transglutaminase Ab IgG 3.6 U/mL
== END 2024-10-08 09:23 | disposition home or self-care (01) ==
LOC: NCHCN 09:22
PROVIDERS: PCP Student in an Organized Health Care Education/Training Program; Visit Provider Student in an Organized Health Care Education/Training Program
DX: Z13.220 Encounter for screening for lipoid disorders (principal); Z13.228 Encounter for screening for other metabolic disorders
CPT/HCPCS: 80061; 88142; 83036; 83516; 85025; 87624

== ENCOUNTER 2024-10-29 13:58 | Outpatient (CLI) | payer BC, SELFPAY ==
[2024-10-29 14:47] LABS: Iron 30 ug/dL (50-170); Total Iron Binding Capacity 426 ug/dL (250-450); Transferrin Sat 7 % (15-50)
[2024-10-29 15:10] LABS: Ferritin 21 ng/mL (8-252); Folate 5.8 ng/mL (8.6-20.0); Vitamin B12 277 pg/mL (193-986)
== END 2024-10-29 13:59 | disposition home or self-care (01) ==
LOC: LBO 13:59
PROVIDERS: PCP Student in an Organized Health Care Education/Training Program; Visit Provider Student in an Organized Health Care Education/Training Program
DX: D64.9 Anemia, unspecified (principal)
CPT/HCPCS: 36415; 82607; 82728; 82746; 83540; 83550

== ENCOUNTER 2025-02-05 15:06 | Outpatient (CLI) | payer BC, SELFPAY ==
[2025-02-05 14:56] LABS: Abs Immature Grans 0.02 10^3/uL (0.0-0.06); HCT 35.9 % (36.0-46.0); HGB 11.3 g/dL (11.2-15.7); Immature Grans % 0.3 %; MCH 24.8 pg (27.0-33.0); MCHC 31.5 % (32.0-36.0); MCV 79 fL (80-95); MPV 11.1 fL (8.0-11.0); Platelet Count 207 10^3/uL (130-400); RBC 4.56 10^6/uL (3.93-5.22); RDW 14.2 % (11.7-14.6); RDW-SD 39.7 fL; WBC 6.49 10^3/uL (4.4-10.8)
[2025-02-05 15:35] LABS: Iron 72 ug/dL (50-170); Total Iron Binding Capacity 449 ug/dL (250-450); Transferrin Sat 16 % (15-50)
[2025-02-05 15:37] LABS: Ferritin 14 ng/mL (8-252)
== END 2025-02-05 15:07 | disposition home or self-care (01) ==
LOC: LBO 15:07
PROVIDERS: PCP Student in an Organized Health Care Education/Training Program; Visit Provider Student in an Organized Health Care Education/Training Program
DX: D50.9 Iron deficiency anemia, unspecified (principal); D64.9 Anemia, unspecified
CPT/HCPCS: 36415; 82728; 83540; 83550; 85025

== ENCOUNTER → 2025-04-12 13:45 | Outpatient (CLI) | payer BC, SELFPAY ==
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
== END ==
LOC: DI 13:46
PROVIDERS: PCP Student in an Organized Health Care Education/Training Program; Visit Provider Nurse Practitioner Family
DX: M79.672 Pain in left foot (principal)
CPT/HCPCS: 73630